=== PATIENT | male | born 1945 | race Caucasian/White ===

== ENCOUNTER 2016-06-07 08:22 | Emergency (ER) | payer MEDICARE ==
[~2016-06-07] VITALS: Ht 182.9 cm; Wt 103.0 kg
[~2016-06-07 08:22] MED LIST: ALPR0.25; ASPI81TA19 PO; ATOR40TA16 PO; BAYE2MIS; BUME2TAB PO; CILO50TA; CYCL1TAB29 PO; DULO1CAP3; ENOX100I; GABA600T PO; HYDR-3133; LISI2.5T3 PO; METH5TAB4; OMEP20CA2 PO; POTA1TAB4; TEMA15CA PO; TRIA.1%T; WARF-23 PO
[2016-06-07 08:24] VITALS: BP 123/68; PULSE 76; RESP 18; TEMP 98.1; O2SAT 97
--- NOTE | 2016-06-07 08:41 | PD ---
HPI Chief Complaint: Laceration/Skin Injury Time Seen by Provider: 08:29 Travel History International Travel<30 days: No Contact w/Intl Traveler<30days: No Traveled to known affect area: No History of Present Illness HPI Patient is a 71 year-old male who presents emergency department for laceration in a posterior aspect of the head. The patient states he was getting ready to go physician earlier today, when he struck his head on a truck and then fell backwards striking his head on the edge of a metal shelf. The patient states he has a laceration back the head which bled initially was currently stopped. He denies any headache, but did feel lightheaded after the incident and thought his blood sugar was low. The patient's blood glucose upon arrival to the emergency department was 115. Patient did have EMS personnel on scene who placed a pressure bandage to the affected area. The patient cannot recall his last tetanus shot. The patient is on Coumadin. He denies any loss of consciousness with the accident. He denies any company neck pain, chest pain , shortness breath, weakness, tingling, or numbness. He denies any acute focal deficits. PFSH Past Medical History Hx Anticoagulant Therapy: Yes (COUMADIN) Arthritis: Yes Asthma: No Autoimmune Disease: No Blood Disorders: No Anxiety: Yes Heart Rhythm Problems: Yes (A-fib, on Coumadin ) Cancer: No Cardiac Catheterization: Yes (17 CATHS AND 4 STENTS) Cardiovascular Problems: Yes (14 [place]; CABG 4 STENTS) High Cholesterol: Yes Chest Pain: Yes Congestive Heart Failure: Yes COPD: Yes Cerebrovascular Accident: Yes (X9 TIMES) Coronary Artery Disease: Yes Diabetes: Yes (TYPE 2 ) Diminished Hearing: Yes ([facility]) Endocrine: Yes Gastrointestinal Disorders: Yes (C-diff, Montes's esophagus, gastroparesis) GERD: Yes Glaucoma: Yes Genitourinary: No Headaches: Yes Hepatitis: No Hiatal Hernia: No Herniated Disk: Yes Hypertension: Yes Immune Disorder: No Inguinal Hernia: Yes Implanted Vascular Access Dvce: No Kidney Stones: Yes Musculoskeletal: No Neurologic: Yes (Restless leg syndrome) Psychiatric: No Reproductive: No Respiratory: Yes (COPD) Integumentary: No Immunizations Current: Yes Migraines: No Myocardial Infarction: Yes (X 14) Pneumonia: Yes Renal Failure: No (decreased kidney function) Seizures: No Sleep Apnea: No Thyroid Disease: No Ulcer: Yes Past Surgical History Abdominal Surgery: Yes (appendectomy) AICD: No Appendectomy: Yes (1970) Arteriovenous Shunt: No Cardiac Surgery: Yes (CABG two vessel, 17 cardiac cath and 4 stents) Cholecystectomy: No Coronary Artery Bypass Graft: Yes (NOVEMBER 2009-2 VESSEL and removed stents ) Coronary Stent: Yes Ear Surgery: No Endocrine Surgery: No Eye Surgery: Yes (Bilat cataract surgery) Genitourinary Surgery: No Gynecologic Surgery: No Insulin Pump: No Joint Replacement: No Neurologic Surgery: No (GORAN CARPAL TUNNEL) Oral Surgery: No Pacemaker: No Thoracic Surgery: No Other Surgery: Yes (right great toe and bilat hands -carpal tunnel) Social History Alcohol Use: No Tobacco Use: No (hx of 4 pack of cigs a day- quit approx 12 yrs ago) Substance Use: No Allergies-Medications (Allergen,Severity, Reaction): Coded Allergies: Iodinated Contrast Media (Verified Allergy, Severe, HIVES, 06/07/16) Iodine (Verified Allergy, Severe, HIVES, 06/07/16) Lortab (Verified Allergy, Severe, 06/07/16) Penicillin (Verified Allergy, Severe, 06/07/16) hives Potassium Iodide (Verified Allergy, Severe, 06/07/16) Demerol (Verified Allergy, Intermediate, Hypotension, 06/07/16) Mercurial Derivatives (Verified Allergy, Mild, 06/07/16) hives Mercury (Verified Allergy, Mild, 06/07/16) hives Sulfa (Verified Allergy, Mild, 06/07/16) hives Reported Meds & Prescriptions Reported Meds & Active Scripts Active Reported Methimazole 5 Mg Tab Lisinopril 2.5 Mg Tab Bumetanide 2 Mg Tab Atorvastatin (Atorvastatin Calcium) 40 Mg Tab Omeprazole 20 Mg Cap Alprazolam 0.25 Mg Tab Hydroxyzine HCl [address] (Duloxetine HCl) 60 Mg Capdr Temazepam 15 Mg Cap Aspir-Low (Aspirin) 81 Mg Tabdr Gabapentin 600 Mg Tab Flexeril (Cyclobenzaprine HCl) 10 Mg Tab Enoxaparin Inj (Enoxaparin Sodium) 100 Mg/Ml Syr K-Tab (Potassium Chloride) 20 Meq Tab Warfarin 5 Mg Tab Cilostazol 50 Mg Tab Triamcinolone Topical (Triamcinolone Acetonide) 0.1% Cream Gregory Breeze 2 Test Disc (Glucose Blood) 1 Mis Mis Review of Systems Except as stated in HPI: all other systems reviewed are Neg Eyes: No: Blurred Vision HENT: Positive: Lightheadedness, No: Headaches Cardiovascular: Positive: Irregular Rhythm (history of A. fib), No: Chest Pain or Discomfort Respiratory: No: Shortness of Breath Gastrointestinal: No: Nausea, Vomiting Musculoskeletal: No: Weakness Neurologic: No: Weakness, Syncope, Focal Abnormalities Physical Exam Narrative GENERAL: Awake, alert, pleasant 71-year-old male who appears his stated age and is in no acute respiratory distress. SKIN: Warm and dry. HEAD: 4 cm linear laceration on the left occipital region with surrounding dried blood, but no active bleeding. EYES: No injection or drainage. ENT: No nasal bleeding or discharge. Mucous membranes pink and moist. NECK: Trachea midline. No JVD. MUSCULOSKELETAL: No obvious deformities. No clubbing. No cyanosis. No edema. NEUROLOGICAL: Awake and alert. No obvious cranial nerve deficits. Motor grossly within normal limits. Normal speech. Nonfocal. PSYCHIATRIC: Appropriate mood and affect; insight and judgment normal. Data Data Last Documented VS Vital Signs Date Time Temp Pulse Resp B/P Pulse Ox O2 Delivery O2 Flow Rate FiO2 06/07/16 08:24 98.1 76 18 123/68 97 Room Air Orders Tetanus/Diphtheria Tox Adult (Tetanus/Di (06/07/16 08:45) Ct Brain W/O Iv Contrast(Rout) (06/07/16 ) Lidocai-Epi 1%-1:100,000 Inj (Xylocaine- (06/07/16 08:45) MDM Medical Decision Making Medical Screen Exam Complete: Yes Emergency Medical Condition: Yes Medical Record Reviewed: Yes Interpretation(s) CT of the head reveals multiple remote infarcts. No sign of acute infarct, hemorrhage, or mass. Differential Diagnosis Differential diagnosis includes laceration, closed head injury, intracranial hemorrhage, coagulopathy, subdural hemorrhage, subarachnoid hemorrhage, abrasion. Narrative Course A CT of the brain was ordered. EMR reveals the patient had a tetanus shot administered in 2015. The patient's laceration was draped and prepped in normal sterile fashion, anesthetized 1% lidocaine with epinephrine using a 27- gauge needle, cleaned and irrigated, and was stapled. CT the brain reveals multiple remote infarcts but no sign of acute infarct, hemorrhage, or mass. The patient is advised to clean the area twice a day, apply Polysporin, and have the anyi removed in 7 days. Procedures Procedure Narrative LACERATION LOCATION: Occipital scalp LENGTH: 4 cm NUMBER OF STITCHES/ANYI: 7 REPAIR: The area of the laceration was prepped with Betadine and sterilely draped. The laceration was infiltrated with 1% lidocaine with epinephrine. The wound was copiously irrigated and explored without evidence of foreign body , tendon injury or neurovascular injury. The wound was closed using anyi. This was a single layer repair. A sterile dressing was applied. The patient was advised to keep the dressing clean and dry. Patient tolerated the procedure well. Diagnosis Primary Impression: Laceration Additional Instructions: [place] removed in 7 days. Clean daily with soap and water, apply Polysporin, and monitor for signs of infection. Follow-up with your primary physician. Return if symptoms worsen or progress. Med/Other Pt SpecificInfo: No Change to Meds Disposition: 01 DISCHARGE HOME Condition: Stable Monroe Su MD Jun 07, 2016 08:41
[2016-06-07] MEDS ORDERED: TETANUS/DIPHTHERIA TOXOID ADULT 0.5 ML VIAL IM ONE (08:45)
[2016-06-07] MEDS ORDERED: LIDOCAINE 1%/EPINEPHrine 1:100,000 SOLN 20 ML VIAL INFIL ONE (08:45)
--- NOTE | 2016-06-07 09:03 | RADHPO ---
EXAM DATE/TIME: 06/07/2016 08:54 [facility] COMPARISON: CT BRAIN W/O CONTRAST, October 04, 2015, 14:52. INDICATIONS : Hit head on metal this morning. RADIATION DOSE: 59.89 CTDIvol (mGy) MEDICAL HISTORY : Cerebrovascular disease. Cardiovascular disease Chronic obstructive pulmonary disease.Anticoagulant t herapy. SURGICAL HISTORY : Coronary artery stent. CABGCataract surgery. ENCOUNTER: Initial ACUITY: 1 day PAIN SCALE: 3/10 LOCATION: Left occipital TECHNIQUE: Multiple contiguous axial images were obtained of the head. Using automated exposure control and adj ustment of the mA and/or kV according to patient size, radiation dose was kept as low as reasonably a chievable to obtain optimal diagnostic quality images. FINDINGS: There is encephalomalacia in the right parietal, left frontal and bilateral occipital regions charact eristic of remote infarcts unchanged. No sign of acute infarct, hemorrhage or mass. Left cerebellar i nfarct is noted, new from previous study, remote in appearance. No fractures. CONCLUSION: Multiple remote infarcts. Castillo Nichole MD on June 07, 2016 at 9:00 Board Certified Radiologist. This report was verified electronically.
== END 2016-06-07 09:44 | disposition home or self-care (01) ==
LOC: PHED 08:22
DX: S01.01XA Laceration without foreign body of scalp, initial encounter (principal); W18.09XA Striking against other object with subsequent fall, initial encounter
CPT/HCPCS: 12002; 70450

== ENCOUNTER 2016-06-14 17:49 | Emergency (ER) | payer MEDICARE ==
[~2016-06-14] VITALS: Ht 182.9 cm; Wt 103.3 kg
[2016-06-14 18:06] VITALS: BP 115/67; PULSE 90; RESP 16; TEMP 97.6; O2SAT 97
[2016-06-14] MEDS ORDERED: INSU1INJ14 SQ (18:25)
--- NOTE | 2016-06-14 18:41 | PD ---
HPI Chief Complaint: Wound/Suture/Staple Re-Check Time Seen by Provider: 18:15 Travel History International Travel<30 days: No Contact w/Intl Traveler<30days: No Traveled to known affect area: No History of Present Illness HPI 71-year-old male presents to the emergency room for staple removal. Patient had 7 anyi placed in his posterior scalp 7 days ago falling and hitting his head. Reports mild continued headaches but denies significant pain at the site of injury. Denies drainage, bleeding, or redness. PFSH Past Medical History Hx Anticoagulant Therapy: Yes Arthritis: Yes Asthma: No Autoimmune Disease: No Blood Disorders: No Anxiety: Yes Heart Rhythm Problems: Yes (A-fib, on Coumadin ) Cancer: No Cardiac Catheterization: Yes (17 CATHS AND 4 STENTS) Cardiovascular Problems: Yes (14 [place]'S; CABG 4 STENTS) High Cholesterol: Yes Chest Pain: Yes Congestive Heart Failure: Yes COPD: Yes Cerebrovascular Accident: Yes (X9 TIMES) Coronary Artery Disease: Yes Diabetes: Yes (TYPE 2 ) Patient Takes Glucophage: No Diminished Hearing: Yes ([facility] [address]) Endocrine: Yes Gastrointestinal Disorders: Yes (C-diff, Montes's esophagus, gastroparesis) GERD: Yes Glaucoma: Yes Genitourinary: No Headaches: Yes Hepatitis: No Hiatal Hernia: No Herniated Disk: Yes Hypertension: Yes Immune Disorder: No Inguinal Hernia: Yes Implanted Vascular Access Dvce: No Kidney Stones: Yes Musculoskeletal: No Neurologic: Yes (Restless leg syndrome) Psychiatric: No Reproductive: No Respiratory: Yes (COPD) Integumentary: No Immunizations Current: Yes Migraines: No Myocardial Infarction: Yes (X 14) Pneumonia: Yes Renal Failure: Yes (decreased kidney function) Seizures: No Sleep Apnea: No Thyroid Disease: No Ulcer: Yes Tetanus Vaccination: < 5 Years Influenza Vaccination: No Past Surgical History Abdominal Surgery: Yes (appendectomy) AICD: No Appendectomy: Yes (1970) Arteriovenous Shunt: No Cardiac Surgery: Yes (CABG two vessel, 17 cardiac cath and 4 stents) Cholecystectomy: No Coronary Artery Bypass Graft: Yes (NOVEMBER 2009-2 VESSEL and removed stents ) Coronary Stent: Yes Ear Surgery: No Endocrine Surgery: No Eye Surgery: Yes (Bilat cataract surgery) Genitourinary Surgery: No Gynecologic Surgery: No Insulin Pump: No Joint Replacement: No Neurologic Surgery: Yes (GORAN CARPAL TUNNEL) Oral Surgery: No Pacemaker: No Thoracic Surgery: No Other Surgery: Yes (right great toe and bilat hands -carpal tunnel) Social History Alcohol Use: No Tobacco Use: No Substance Use: No Allergies-Medications (Allergen,Severity, Reaction): Coded Allergies: Iodinated Contrast Media (Verified Allergy, Severe, HIVES, 06/14/16) Iodine (Verified Allergy, Severe, HIVES, 06/14/16) Lortab (Verified Allergy, Severe, 06/14/16) Penicillin (Verified Allergy, Severe, 06/14/16) hives Potassium Iodide (Verified Allergy, Severe, 06/14/16) Demerol (Verified Allergy, Intermediate, Hypotension, 06/14/16) Mercurial Derivatives (Verified Allergy, Mild, 06/14/16) hives Mercury (Verified Allergy, Mild, 06/14/16) hives Sulfa (Verified Allergy, Mild, 06/14/16) hives Reported Meds & Prescriptions Reported Meds & Active Scripts Active Reported Tresiba Flextouch Pen Inj (Insulin Degludec Inj) 300 unit/3 ML Pen 60 Units SQ HS Lisinopril 2.5 Mg Tab 1 Tab PO DAILY Bumetanide 2 Mg Tab 1 Tab PO DAILY Atorvastatin (Atorvastatin Calcium) 40 Mg Tab 1 Tab PO HS Omeprazole 20 Mg Cap 1 Tab PO DAILY Temazepam 15 Mg Cap 1 Tab PO HS PRN Aspir-Low (Aspirin) 81 Mg Tabdr 1 Tab PO DAILY Gabapentin 600 Mg Tab 300 Mg PO TID Flexeril (Cyclobenzaprine HCl) 10 Mg Tab 1 Tab PO TID PRN Warfarin 5 Mg Tab 7.5 Mg PO DAILY Review of Systems Except as stated in HPI: all other systems reviewed are Neg Physical Exam Narrative GENERAL: Well-nourished, well-developed male in no acute distress. Afebrile. Ambulatory. SKIN: Warm and dry. Well healed, well approximated 3 cm laceration on the posterior left scalp. Nontender. No evidence of infection. 7 intact anyi. HEAD: Normocephalic. EYES: No scleral icterus. No injection or drainage. NECK: Supple, trachea midline. No JVD or lymphadenopathy. Data Data Last Documented VS Vital Signs Date Time Temp Pulse Resp B/P Pulse Ox O2 Delivery O2 Flow Rate FiO2 06/14/16 18:06 97.6 90 16 115/67 97 MDM Medical Decision Making Medical Screen Exam Complete: Yes Emergency Medical Condition: Yes Medical Record Reviewed: Yes Differential Diagnosis Suture removal versus ulceration versus wound infection Narrative Course 71-year-old male presents to the emergency room for evaluation of suture removal. Patient had 7 sutures placed 7 days ago. No evidence of infection. No drainage. Nontender. 7 anyi removed without difficulty. Patient discharged with wound care instructions and told to follow up with PCP or return for worsening symptoms. He understands and agrees to this plan. Diagnosis Primary Impression: Encounter for removal of sutures Referrals: Primary Care Physician Patient Instructions: General Instructions, Stitches Removal (ED) Additional Instructions: Keep wound clean and dry. Follow-up with a primary care physician. Return to the emergency room for worsening symptoms. Med/Other Pt SpecificInfo: Prescription(s) given Disposition: 01 DISCHARGE HOME Condition: Stable Debbie Houston Jun 14, 2016 18:41
== END 2016-06-14 18:50 | disposition home or self-care (01) ==
LOC: PHEFT 17:49
DX: Z48.02 Encounter for removal of sutures (principal)
CPT/HCPCS: 99281

== ENCOUNTER 2016-08-08 09:01 | Emergency (ER) | payer MEDICARE ==
[~2016-08-08] VITALS: Ht 182.9 cm; Wt 94.2 kg
[~2016-08-08 09:01] MED LIST changes: -ALPR0.25; -BAYE2MIS; -CILO50TA; -DULO1CAP3; -ENOX100I; -HYDR-3133; +INSU1INJ14 SQ; -METH5TAB4; -POTA1TAB4; -TRIA.1%T
[2016-08-08 09:07] VITALS: BP 118/62; PULSE 91; RESP 16; TEMP 98.6; O2SAT 96
[2016-08-08] MEDS ORDERED: OXYMETAZOLINE HCL 0.05% 15 ML NASAL SPRAY NASAL ONE (09:30)
--- NOTE | 2016-08-08 09:43 | PD ---
HPI . Nosebleed Chief Complaint: Nosebleed Time Seen by Provider: 09:13 Travel History International Travel<30 days: No Contact w/Intl Traveler<30days: No Traveled to known affect area: No History of Present Illness HPI Patient presents with a nosebleed which started last night. He is concerned that his INR is too high. He is maintained on both Coumadin and aspirin because of previous stroke. He denies any other symptoms today except for the nosebleed. PFSH Past Medical History Hx Anticoagulant Therapy: Yes Arthritis: Yes Asthma: No Autoimmune Disease: No Blood Disorders: No Anxiety: Yes Heart Rhythm Problems: Yes (A-fib, on Coumadin ) Cancer: No Cardiac Catheterization: Yes (17 CATHS AND 4 STENTS) Cardiovascular Problems: Yes (14 [place]'S; CABG 4 STENTS) High Cholesterol: Yes Chest Pain: Yes Congestive Heart Failure: Yes COPD: Yes Cerebrovascular Accident: Yes (X9 TIMES) Coronary Artery Disease: Yes Diabetes: Yes (TYPE 2 ) Patient Takes Glucophage: Yes Diminished Hearing: Yes ([place] [address]) Endocrine: Yes Gastrointestinal Disorders: Yes (C-diff, Montes's esophagus, gastroparesis) GERD: Yes Glaucoma: Yes Genitourinary: No Headaches: Yes Hepatitis: No Hiatal Hernia: No Herniated Disk: Yes Hypertension: Yes Immune Disorder: No Inguinal Hernia: Yes Implanted Vascular Access Dvce: No Kidney Stones: Yes Musculoskeletal: No Neurologic: Yes (Restless leg syndrome) Psychiatric: No Reproductive: No Respiratory: Yes (COPD) Integumentary: No Immunizations Current: Yes Migraines: No Myocardial Infarction: Yes (X 14) Pneumonia: Yes Renal Failure: Yes (decreased kidney function) Seizures: No Sleep Apnea: No Thyroid Disease: No Ulcer: Yes Tetanus Vaccination: < 5 Years Influenza Vaccination: Yes Past Surgical History Abdominal Surgery: Yes (appendectomy) AICD: No Appendectomy: Yes (1970) Arteriovenous Shunt: No Cardiac Surgery: Yes (CABG two vessel, 17 cardiac cath and 4 stents) Cholecystectomy: No Coronary Artery Bypass Graft: Yes (NOVEMBER 2009-2 VESSEL and removed stents ) Coronary Stent: Yes Ear Surgery: No Endocrine Surgery: No Eye Surgery: Yes (Bilat cataract surgery) Genitourinary Surgery: No Gynecologic Surgery: No Insulin Pump: No Joint Replacement: No Neurologic Surgery: Yes (GORAN CARPAL TUNNEL) Oral Surgery: No Pacemaker: No Thoracic Surgery: No Other Surgery: Yes (right great toe and bilat hands -carpal tunnel) Social History Alcohol Use: No Tobacco Use: No Substance Use: No Allergies-Medications (Allergen,Severity, Reaction): Coded Allergies: Iodinated Contrast Media (Verified Allergy, Severe, HIVES, 08/08/16) Iodine (Verified Allergy, Severe, HIVES, 08/08/16) Lortab (Verified Allergy, Severe, 08/08/16) Penicillin (Verified Allergy, Severe, 08/08/16) hives Potassium Iodide (Verified Allergy, Severe, 08/08/16) Demerol (Verified Allergy, Intermediate, Hypotension, 08/08/16) Mercurial Derivatives (Verified Allergy, Mild, 08/08/16) hives Mercury (Verified Allergy, Mild, 08/08/16) hives Sulfa (Verified Allergy, Mild, 08/08/16) hives Reported Meds & Prescriptions Reported Meds & Active Scripts Active Reported Tresiba Flextouch Pen Inj (Insulin Degludec Inj) 300 unit/3 ML Pen 60 Units SQ HS Lisinopril 2.5 Mg Tab 1 Tab PO DAILY Bumetanide 2 Mg Tab 1 Tab PO DAILY Atorvastatin (Atorvastatin Calcium) 40 Mg Tab 1 Tab PO HS Omeprazole 20 Mg Cap 1 Tab PO DAILY Temazepam 15 Mg Cap 1 Tab PO HS PRN Aspir-Low (Aspirin) 81 Mg Tabdr 1 Tab PO DAILY Gabapentin 600 Mg Tab 300 Mg PO TID Flexeril (Cyclobenzaprine HCl) 10 Mg Tab 1 Tab PO TID PRN Warfarin 5 Mg Tab 7.5 Mg PO DAILY Review of Systems HENT: Positive: Nosebleed Physical Exam Narrative GENERAL: Awake and alert and in no acute distress. SKIN: Warm and dry. HEENT: He has fresh blood at Kiesselbach's plexus bilaterally. No active bleeding. CARDIOVASCULAR: Regular rate and rhythm. RESPIRATORY: No accessory muscle use. MUSCULOSKELETAL: No obvious deformities. No edema. NEUROLOGICAL: Awake and alert. No obvious cranial nerve deficits. Motor grossly within normal limits. Normal speech. PSYCHIATRIC: Appropriate mood and affect; insight and judgment normal. Data Data Last Documented VS Vital Signs Date Time Temp Pulse Resp B/P Pulse Ox O2 Delivery O2 Flow Rate FiO2 08/08/16 09:07 98.6 91 16 118/62 96 Orders Prothrombin Time / Inr (Pt) (3/5/17 09:16) Oxymetazoline 0.05% Baldomero Lyman (Afrin 0.0 (08/08/16 09:30) Labs Laboratory Tests Test 08/08/16 09:25 Prothrombin Time GREATER THAN 180.0 SEC Prothromb Time International GREATER THAN Ratio 16.7 RATIO MDM Medical Decision Making Medical Screen Exam Complete: Yes Emergency Medical Condition: Yes Differential Diagnosis Differential diagnosis includes but is not limited to epistaxis due to an upper respiratory infection, coagulopathy, local trauma, nasal fracture Narrative Course Patient presents for evaluation of nosebleed. We'll check his INR. He will be treated with Afrin. INR is >16.7. I have queried up-to-date. It recommends doing the Coumadin and treating with a dose of oral vitamin K. He needs to be rechecked by his primary care provider in the next 24-48 hours. Diagnosis Primary Impression: Epistaxis Additional Impression: Warfarin-induced coagulopathy Patient Instructions: Epistaxis (DC), General Instructions Additional Instructions: Hold your Coumadin. See your doctor tomorrow for recheck. Disposition: 01 DISCHARGE HOME Condition: Stable Elda Leach MD Aug 08, 2016 09:43 Elda Leach MD Aug 08, 2016 09:43
[2016-08-08 10:11] LABS: PROTHROMBIN TIME - PATIENT GREATER THAN 180.0 SEC (9.8-11.6)
[2016-08-08 10:12] LABS: INTERNATIONAL NORMALIZED RATIO GREATER THAN 16.7 RATIO
[2016-08-08] MEDS ORDERED: PHYTONADIONE 5 MG TAB PO ONE (10:30)
[2016-08-08 10:44] VITALS: BP 120/65
== END 2016-08-08 10:47 | disposition home or self-care (01) ==
LOC: PHED 09:01
DX: R04.0 Epistaxis (principal); T45.515A Adverse effect of anticoagulants, initial encounter; I48.91 Unspecified atrial fibrillation; E78.00 Pure hypercholesterolemia, unspecified; E11.9 Type 2 diabetes mellitus without complications; I10 Essential (primary) hypertension; Z79.01 Long term (current) use of anticoagulants; X58.XXXA Exposure to other specified factors, initial encounter
CPT/HCPCS: 85610; 99283